=== PATIENT | male | born 1965 ===

== ENCOUNTER 2020-03-22 20:50 | Inpatient (IN) | payer MEDICAID ==
[~2020-03-22] VITALS: Ht 175.3 cm; Wt 87.2 kg
[2020-03-22] MEDS ORDERED: HALOPERIDOL LACTATE 5 MG/ML VIAL IM ONE (21:30)
[2020-03-22] MEDS ORDERED: LORazepam 2 MG/ML VIAL IM ONE (21:30)
[2020-03-22] MEDS ORDERED: DiphenhydrAMINE HCL 50 MG/ML VIAL IM ONE (21:30)
[2020-03-22] MEDS ORDERED: GABA-1181 PO (21:33)
[2020-03-22] MEDS ORDERED: PROZ10 PO (21:33)
[2020-03-22] MEDS ORDERED: PROP10TA73 PO (21:33)
[2020-03-22] MEDS ORDERED: HALOPERIDOL 5 MG TABLET PO PRN (22:30)
[2020-03-22] MEDS ORDERED: LORazepam 2 MG TABLET PO PRN (22:30)
[2020-03-22] MEDS ORDERED: ZOLPIDEM TARTRATE 10 MG TABLET PO PRN (22:30)
[2020-03-23] MEDS ORDERED: LORazepam 2 MG/ML VIAL IM ONE
[2020-03-23 00:18] LABS: AMPHET/METH SCREEN,URINE NEGATIVE (NEGATIVE); BARBITURATE SCREEN, URINE NEGATIVE (NEGATIVE); BENZODIAZEPINES SCREEN,URINE NEGATIVE (NEGATIVE); CANNABINOID SCREEN,URINE POSITIVE (NEGATIVE); COCAINE SCREEN,URINE NEGATIVE (NEGATIVE); METHADONE SCREEN, URINE NEGATIVE (NEGATIVE); OPIATE SCREEN,URINE NEGATIVE (NEGATIVE)
[2020-03-23 00:19] LABS: PHENCYCLIDINE SCREEN,URINE NEGATIVE (NEGATIVE)
[2020-03-23] MEDS ORDERED: ALBUTEROL SULFATE HFA 90 MCG/PUFF 8 GM INHALER IH PRN (07:45)
[2020-03-23] MEDS ORDERED: DOCUSATE SODIUM 100 MG CAPSULE PO PRN (07:45)
[2020-03-23] MEDS ORDERED: LOPERAMIDE HCL 2 MG CAPSULE PO PRN (07:45)
[2020-03-23] MEDS ORDERED: GuaiFENesin/D-METHORPHAN [SUGAR-FREE] 200-20MG/10 ML SYRUP UDCUP PO PRN (07:45)
[2020-03-23] MEDS ORDERED: MAGNESIUM HYDROXIDE SUSPENSION 30 ML UDCUP PO PRN (07:45)
[2020-03-23] MEDS ORDERED: NICOTINE 14 MG/24 HOUR PATCH TD PRN (07:45)
[2020-03-23] MEDS ORDERED: IBUPROFEN 400 MG TABLET PO PRN (07:45)
[2020-03-23] MEDS ORDERED: CloNIDine HCL 0.1 MG TABLET PO PRN (07:45)
[2020-03-23] MEDS ORDERED: ONDANSETRON HCL 4 MG TABLET PO PRN (07:45)
[2020-03-23] MEDS ORDERED: MAG HYDROX/AL HYDROX/SIMETH ES 30 ML SUSPENSION UDCUP PO PRN (07:45)
[2020-03-23] MEDS ORDERED: ACETAMINOPHEN 325 MG TABLET PO PRN (07:45)
[2020-03-23] MEDS ORDERED: PETROLATUM,WHITE 28 GM JELLY TP PRN (07:45)
[2020-03-23 09:10] VITALS: BP 153/94
[2020-03-23 09:20] LABS: APPEARANCE,URINE CLEAR (CLEAR); BILIRUBIN,URINE NEGATIVE (NEGATIVE); GLUCOSE, URINE (UA) NEGATIVE (NEGATIVE); KETONES,URINE NEGATIVE (NEGATIVE); LEUKOCYTE ESTERASE ,URINE NEGATIVE (NEGATIVE); NITRATE,URINE NEGATIVE (NEGATIVE); OCCULT BLOOD,URINE NEGATIVE (NEGATIVE); PH,URINE 5.5 (5.0-8.0); PROTEIN,URINE NEGATIVE (NEGATIVE); UROBILINOGEN,URINE 0.2 mg/dL (<=1.0)
[2020-03-23 10:17] VITALS: BP 153/94
[2020-03-23] MEDS ORDERED: PNEUMOCOCCAL VACCINE POLYVALENT 0.5 ML VIAL [PPSV23] IM ONE (11:45)
[2020-03-23 17:27] VITALS: BP 148/86
[2020-03-23] MEDS: PROPRANOLOL HCL 10 MG TABLET PO SCH (17:28)
[2020-03-24] MEDS: FluvoxaMINE MALEATE 50 MG TABLET PO SCH (08:01)
[2020-03-24] MEDS: PROPRANOLOL HCL 10 MG TABLET PO SCH ×2 (08:02→16:55)
[2020-03-24 08:12] VITALS: BP 145/86
[2020-03-24 16:04] VITALS: BP 142/76
[2020-03-25 00:17] VITALS: BP 129/78
[2020-03-25] MEDS: PROPRANOLOL HCL 10 MG TABLET PO SCH (08:39)
[2020-03-25] MEDS: FluvoxaMINE MALEATE 50 MG TABLET PO SCH (08:40)
[2020-03-25 08:49] VITALS: BP 145/90
[2020-03-25] MEDS ORDERED: FLUV50 PO (12:12)
[2020-03-25] MEDS ORDERED: PROP10TA73 PO (12:15)
== END 2020-03-25 15:15 | disposition home or self-care (01) | DRG 885 ==
LOC: EMS 20:50 → 3EC 22:16
PROVIDERS: ADMIT Psychiatry & Neurology Child & Adolescent Psychiatry; ATTEND Psychiatry & Neurology Child & Adolescent Psychiatry
PROC: 3E0234Z Introduction of Serum, Toxoid and Vaccine into Muscle, Percutaneous Approach (ICD-10-PCS; principal; 2020-03-23)
DX: F33.2 Major depressive disorder, recurrent severe without psychotic features (principal); R45.851 Suicidal ideations; F25.9 Schizoaffective disorder, unspecified; F10.10 Alcohol abuse, uncomplicated; F19.10 Other psychoactive substance abuse, uncomplicated; G40.909 Epilepsy, unspecified, not intractable, without status epilepticus; G44.209 Tension-type headache, unspecified, not intractable; M06.9 Rheumatoid arthritis, unspecified; R03.0 Elevated blood-pressure reading, without diagnosis of hypertension; Z87.820 Personal history of traumatic brain injury; Z23 Encounter for immunization; Z78.1 Physical restraint status; Z79.899 Other long term (current) drug therapy
CPT/HCPCS: 90732; 93005; 99291; J1200; J1630; J2060